=== PATIENT | female | born 1980 | race Caucasian/White ===

== ENCOUNTER 2016-09-12 07:59 | Day surgery (SDC) | payer OTHER ==
[2016-09-12 08:56] VITALS: BMI 45.1
[2016-09-12] MEDS ORDERED: LIDOCAINE HCL/PF 1% SDV 5ML VIAL ONE (09:04)
[2016-09-12] MEDS ORDERED: PROPOFOL 20 ML ONE (09:04)
[2016-09-12 09:52] VITALS: TEMP 98.4
[2016-09-12 10:41] VITALS: BP 110/73; PULSE 74
--- NOTE | 2016-09-13 11:51 | PATH ---
Surgical Pathology Report Patient Name: MICHELLE LARA [facility]. Rec. #: [id number] /Age/Gender: 1980 (Age: 36) / F Account: [id number] Location: U-ENDOSCOPY Taken: 09/12/2016 Received: 09/12/2016 Reported: 09/13/2016 Physicians: Bahman Murphy M.D. Specimen(s) Received A: BX DUODENUM B: BX STOMACH C: BX DISTAL ESOPHAGUS Clinical History Preprocedure for gastric operation Reflux, small hiatal hernia, gastritis Final Diagnosis A. DUODENUM, BIOPSY: DUODENAL MUCOSA WITH NO PATHOLOGIC CHANGES. NO HISTOLOGIC EVIDENCE OF GLUTEN SENSITIVE ENTEROPATHY (CELIAC SPRUE) IDENTIFIED. B. STOMACH, BIOPSY: GASTRIC FUNDIC MUCOSA WITH MILD CHRONIC GASTRITIS. IMMUNOSTAIN FOR H. PYLORI IS NEGATIVE. C. DISTAL ESOPHAGUS, BIOPSY: SQUAMOUS EPITHELIUM WITH PAPILLOMATOSIS SUGGESTIVE OF REFLUX ESOPHAGITIS. NO INTESTINAL METAPLASIA IDENTIFIED (NO PRETTY'S IDENTIFIED). Electronically Signed Nazario Aranda M.D. Gross Description A. Received in formalin, labeled "biopsy duodenum" are 2 morris, irregular portions of soft tissue measuring 0.2 and 0.4 cm. in greatest dimension. The specimens are submitted in toto in one cassette. B. Received in formalin, labeled "biopsy stomach" are 3 morris, irregular portions of soft tissue averaging 0.4 cm. in greatest dimension. The specimens are submitted in toto in one cassette. C. Received in formalin, labeled "biopsy distal esophagus" is a morris, irregular portion of soft tissue measuring 0.3 cm. in greatest dimension. The specimen is submitted in toto in one cassette. 09/12/201609/12/2016
== END 2016-09-12 10:41 | disposition home or self-care (01) ==
LOC: JASU-ENDO 07:59
PROVIDERS: ATTEND Internal Medicine Gastroenterology
PROC: 0DB68ZX Excision of Stomach, Via Natural or Artificial Opening Endoscopic, Diagnostic (ICD-10-PCS; 2016-09-12)
PROC: 0DB58ZX Excision of Esophagus, Via Natural or Artificial Opening Endoscopic, Diagnostic (ICD-10-PCS; 2016-09-12)
PROC: 0DB98ZX Excision of Duodenum, Via Natural or Artificial Opening Endoscopic, Diagnostic (ICD-10-PCS; principal; 2016-09-12 09:00)
DX: Z01.818 Encounter for other preprocedural examination (principal); E66.01 Morbid (severe) obesity due to excess calories; K29.60 Other gastritis without bleeding; K44.9 Diaphragmatic hernia without obstruction or gangrene
CPT/HCPCS: 84703; 88305-TC; 88342-TC

== ENCOUNTER 2016-10-03 11:53 | Emergency (ER) | payer OTHER ==
[2016-10-03 12:11] VITALS: BP 116/87; PULSE 82; TEMP 98; BMI 45.1
[2016-10-03] MEDS ORDERED: IBUPROFEN 600 MG TABLET (FP) PO ONE ×2 (12:43→13:04)
--- NOTE | 2016-10-03 12:44 | PDOC ---
History of Present Illness - General Chief Complaint: Sore Throat Stated Complaint: SORE THROAT Time Seen by Provider: 10/03/16 12:02 - History of Present Illness Initial Comments: 10/03/16 12:51 Chief complaint: Sore throat History of present illness: Patient with a sore throat for 3 days, temporary relief with Motrin, but persistent. Partner with similar upper respiratory illness. Review of systems: Denies cough, chest pain, shortness of breath, abdominal pain , nausea, vomiting, diarrhea, dysuria or frequency, vaginal bleeding or discharge, fever or chills Past medical history: Healthy female, no active medical problems, no asthma or other lung disease, no present medication other than ibuprofen and Tylenol for the current illness Social/family history reviewed and noncontributory. Specifically, nonsmoker Physical exam: Alert and oriented, significantly obese female but in no acute distress, cheerful and cooperative Afebrile, vital signs normal HEENT clear except for mild pharyngeal injection without exudate, swelling, or mass Neck supple without bruit mass or nodes Chest clear CV regular without murmur or gallop Abdomen benign Neurological intact Skin clear, no rash, adequate turgor and what mucous membranes Impression: Viral pharyngitis, rule out strep Plan: Culture and further medical management depending on results. Past History - Past Medical History Allergies/Adverse Reactions: Allergies Allergy/AdvReac Type Severity Reaction Status Date / Time clarithromycin [From Biaxin] Allergy Difficulty Verified 10/03/16 12:07 Breathing TUMERIC Allergy Uncoded 10/03/16 12:07 Home Medications: Ambulatory Orders Cholecalciferol (Vitamin D3) [Vitamin D -] 400 unit PO DAILY 09/12/16 Magnesium Carbonate/Al Hydrox [Gaviscon Es Tablet Chew] 2 each PO TID #0 tab.chew 09/12/16 Multivit with Iron-Minerals [Compete] 1 each PO DAILY 09/12/16 Anemia: No Asthma: No Cancer: No Cardiac Disorders: No (Murmur) CVA: No COPD: No CHF: No Dementia: No Diabetes: Yes (PRE-DIABETIC) GI Disorders: No Disorders: No HTN: No Hypercholesterolemia: No Liver Disease: No Seizures: No Thyroid Disease: No - Surgical History Abdominal Surgery: No Appendectomy: No Cardiac Surgery: No Cholecystectomy: No Lung Surgery: No Neurologic Surgery: No Orthopedic Surgery: No - Psycho/Social/Smoking Cessation Hx Anxiety: No Suicidal Ideation: No Smoking History: Never smoked Have you smoked in the past 12 months: No If you are a former smoker, when did you quit?: aug 2014 'Breaking Loose' booklet given: 12/22/14 Hx Alcohol Use: No Drug/Substance Use Hx: No Substance Use Type: None Hx Substance Use Treatment: No *Physical Exam - Vital Signs Last Vital Signs Temp Pulse Resp BP Pulse Ox 98.0 F 82 15 116/87 98 10/03/16 11:54 10/03/16 11:54 10/03/16 11:54 10/03/16 11:54 10/03/16 11:54 *DC/Admit/Observation/Transfer Diagnosis at time of Disposition: Acute viral pharyngitis - Discharge Dispostion Disposition: HOME Condition at time of disposition: Stable Admit: No - Referrals Referrals: Ashley Moses MD [Primary Care Provider] - 3 days - Patient Instructions Printed Discharge Instructions: DI for Viral Pharyngitis - Post Discharge Activity Work/School Note: Back to Work
== END 2016-10-03 13:17 | disposition home or self-care (01) ==
LOC: FER 11:53
DX: J02.9 Acute pharyngitis, unspecified (principal); B97.89 Other viral agents as the cause of diseases classified elsewhere; E66.9 Obesity, unspecified; Z68.42 Body mass index [BMI] 45.0-49.9, adult; Z87.891 Personal history of nicotine dependence
CPT/HCPCS: 87070; 87430; 99281-25

== ENCOUNTER 2016-10-10 10:59 | Emergency (ER) | payer OTHER ==
[2016-10-10 11:06] VITALS: BP 128/67; PULSE 79; TEMP 98.4; BMI 45.1
--- NOTE | 2016-10-10 11:30 | PDOC ---
History of Present Illness - General Chief Complaint: Respiratory Stated Complaint: DIFF BREATHING, COUGH Time Seen by Provider: 10/10/16 11:17 - History of Present Illness Initial Comments: 10/10/16 13:53 Chief complaint: Shortness of breath History of present illness: Patient is complains of the sensation of not being able to take a deep breath. This occurs mostly at night while trying to sleep. She recently got a new dog and is concerned that this may be an ALLERGY, though there has been no wheezing or nasal congestion. She has a history of severe anxiety, hyperventilation, and PTSD, and states that there has been considerable stress due to her new puppy. Review of systems: As above. Otherwise all systems reviewed and found to be negative. Past medical history: Reviewed and noncontributory otherwise Social/family history reviewed and noncontributory Physical exam: Morbidly obese but otherwise healthy appearing and in no acute distress. No respiratory distress, including tachypnea or dyspnea. Patient is breathing normally Afebrile, vital signs normal HEENT clear Neck supple without bruit mass or nodes Chest clear with full breath sounds throughout bilaterally. No wheezes rales or rhonchi. No splinting with deep inspiration. No tachypnea or dyspnea CV S1 and S2 normal without murmur or gallop pulses full and symmetric no JVD or edema rate 90 and regular Abdomen benign Neurological intact Extremities no CCE Skin clear, no rash, adequate turgor and what mucous membranes Impression: The patient's sensation of inability to take a full deep inspiration , along with normal oxygen saturation and no obvious dyspnea, suggests that this is either anxiety/hyperventilation or possibly an ALLERGIC reaction to her new dog, Though this sounds unlikely. No sign of infectious etiology, URI, bronchitis, or pneumonia Plan: Discuss relaxation techniques, albuterol inhaler as a trial at night when the dog is around, cleaning of the room with eliminating carpets and other sources of dust. Follow-up primary physician. Patient in no distress, no respiratory symptoms upon discharge to follow-up as directed Past History - Past Medical History Allergies/Adverse Reactions: Allergies Allergy/AdvReac Type Severity Reaction Status Date / Time clarithromycin [From Biaxin] Allergy Difficulty Verified 10/10/16 11:01 Breathing turmeric Allergy Verified 10/10/16 11:01 Home Medications: Ambulatory Orders Albuterol Sulfate Inhaler - [Ventolin HFA Inhaler -] 1 - 2 inh PO Q4H PRN #1 inhaler 10/10/16 Anemia: No Asthma: No Cancer: No Cardiac Disorders: (Murmur) CVA: No COPD: No CHF: No Dementia: No Diabetes: Yes (PRE-DIABETIC) GI Disorders: No Disorders: No HTN: No Hypercholesterolemia: No Liver Disease: No Seizures: No Thyroid Disease: No - Surgical History Abdominal Surgery: No Appendectomy: No Cardiac Surgery: No Cholecystectomy: No Lung Surgery: No Neurologic Surgery: No Orthopedic Surgery: No - Psycho/Social/Smoking Cessation Hx Anxiety: No Suicidal Ideation: No Smoking History: Former smoker Have you smoked in the past 12 months: No If you are a former smoker, when did you quit?: aug 2014 Information on smoking cessation initiated: No 'Breaking Loose' booklet given: 10/10/16 Hx Alcohol Use: No Drug/Substance Use Hx: No Substance Use Type: None Hx Substance Use Treatment: No *Physical Exam - Vital Signs Last Vital Signs Temp Pulse Resp BP Pulse Ox 98.4 F 79 18 128/67 98 10/10/16 11:00 10/10/16 11:00 10/10/16 11:00 10/10/16 11:00 10/10/16 11:00 *DC/Admit/Observation/Transfer Diagnosis at time of Disposition: Allergic reaction Qualifiers: Encounter type: initial encounter Qualified Code(s): T78.40XA - Allergy, unspecified, initial encounter - Discharge Dispostion Disposition: HOME Condition at time of disposition: Stable Admit: No - Prescriptions Prescriptions: Albuterol Sulfate Inhaler - [Ventolin HFA Inhaler -] 1 - 2 inh PO Q4H PRN #1 inhaler PRN Reason: shortness of breath or wheezin - Referrals Referrals: Ashley Moses MD [Primary Care Provider] - 2 Days - Patient Instructions Printed Discharge Instructions: DI for Anxiety -- Adult, Allergies, Respiratory (Alternative Therapy)
== END 2016-10-10 11:45 | disposition home or self-care (01) ==
LOC: FER 10:59
DX: T78.40XA Allergy, unspecified, initial encounter (principal); X58.XXXA Exposure to other specified factors, initial encounter; Y93.9 Activity, unspecified; R01.1 Cardiac murmur, unspecified; Z87.891 Personal history of nicotine dependence; E66.01 Morbid (severe) obesity due to excess calories; Z68.42 Body mass index [BMI] 45.0-49.9, adult
CPT/HCPCS: 99282-25

== ENCOUNTER 2017-01-07 08:52 | Emergency (ER) | payer OTHER ==
--- NOTE | 2017-01-07 09:01 | PDOC ---
Attending Attestation - Resident Resident Name: Keon Goldstein - ED Attending Attestation I have performed the following: I have examined & evaluated the patient, The case was reviewed & discussed with the resident, I agree w/resident's findings & plan, Exceptions are as noted - HPI HPI: 01/07/17 08:58 The patient is a 36-year-old female, with no significant past medical history, allergic to Biaxin and Turmeric, and no prior history of anaphylaxis, who presents to the emergency department with "an itchy rash of hives." She started taking Wellbutrin for weight loss approximately 4 days ago, and developed the rash gradually approximately 24 hours after taking the first dose. Lesions are red and itchy and change locations. She denies lip, tongue swelling. She denies a feeling of "throat tightness." She denies dyspnea, wheeze, cough. She denies nausea, vomiting, abdominal pain. She took Benadryl with only minimal response. She denies fever, headache, photophobia, neck stiffness. She denies any other novel products, medications, foods. 01/07/17 09:09 01/07/17 09:10 - Physicial Exam PE: 01/07/17 08:59 She is well-appearing and in no acute distress Vitals noted She has scattered hives, without involvement of her mucous membranes - Medical Decision Making 01/07/17 09:00 There is no evidence of anaphylaxis Will provide a single dose of Decadron and Ranitidine here Will treat with outpatient H1 blockade, H2 blockade Clinical impression: Mild ALLERGIC reaction to Wellbutrin I discussed the physical exam findings, ancillary test results and final diagnoses with the patient. I answered all of the patient's questions. The patient was satisfied with the care received and felt comfortable with the discharge plan and treatment plan. The patient will call their primary care physician within 24 hours to arrange follow-up and will return to the Emergency Department with any new, persistent or worsening symptoms. 01/07/17 09:18
[2017-01-07] MEDS ORDERED: DEXAMETHASONE 4 MG TABLET (FP) PO ONE (09:10)
[2017-01-07 09:12] VITALS: BP 138/58; PULSE 107; TEMP 98.4; BMI 45.1
[2017-01-07] MEDS ORDERED: DEXAMETHASONE 4 MG TABLET (FP) ONE (09:16)
[2017-01-07] MEDS ORDERED: RANITIDINE HCL 150 MG TABLET (FP) PO ONE (09:17)
[2017-01-07] MEDS ORDERED: RANITIDINE HCL 150 MG TABLET (FP) ONE (09:18)
--- NOTE | 2017-01-07 09:30 | PDOC ---
History of Present Illness - General Chief Complaint: Allergic Reaction Stated Complaint: ALLERGIC REACTION RASH AND ITCH Time Seen by Provider: 01/07/17 09:09 History Source: Patient Exam Limitations: No Limitations - History of Present Illness Initial Comments: 01/07/17 09:23 36 y/o F with PMH of anxiety presents to ER w/ c/o itchiness and rash after starting a new medication. Pt was started on wellbutrin approximately 5 days ago for appetite suppression and anxiety. Soon after starting medication patient began having itchiness which started in groin area and eventually progressed into full body itchiness over the last 5 days. She also developed a rash on her arms, chest, lower back, abdomen, and legs and warmth in body. She took 2 OTC benadryl pills last night which helped her sleep but did not help with the itchiness or rash. She denies any change in diet, denies using any new clothes, change in jewelry, new fragrances, new body products including washes , shampoos, soaps, lotions, creams, or change in any supplements. She denies any CP, SOB, wheezing, tongue swelling, abd pain, nausea, vomiting, diarrhea, chills, visual changes. Denies any sick contacts. Past History - Past Medical History Allergies/Adverse Reactions: Allergies Allergy/AdvReac Type Severity Reaction Status Date / Time bupropion HCl Allergy Hives Verified 01/07/17 09:21 [From Wellbutrin] clarithromycin [From Biaxin] Allergy Difficulty Verified 01/07/17 08:54 Breathing turmeric Allergy Verified 01/07/17 08:54 Home Medications: Ambulatory Orders Biotin 10,000 mcg PO DAILY 01/07/17 Bupropion HCl [Wellbutrin Xl -] 150 mg PO DAILY 01/07/17 Cholecalciferol (Vitamin D3) [Vitamin D3 -] 400 unit PO DAILY 01/07/17 Famotidine [Pepcid] 20 mg PO BID #14 tablet 01/07/17 Loratadine [Claritin] 10 mg PO DAILY #7 tablet 01/07/17 Multivitamins [Tab-A-Vit -] 1 tab PO DAILY 01/07/17 Vit B Comp/C/FA/Iron/Vit E [Vitamin B Complex Tablet] 1 each PO DAILY 01/07/17 Anemia: No Asthma: No Cancer: No Cardiac Disorders: (Murmur) CVA: No COPD: No CHF: No Dementia: No Diabetes: Yes (PRE-DIABETIC) GI Disorders: No Disorders: No HTN: No Hypercholesterolemia: No Liver Disease: No Seizures: No Thyroid Disease: No Other medical history: ANXIETY DEPRESSION - Surgical History Abdominal Surgery: No Appendectomy: No Cardiac Surgery: No Cholecystectomy: No Lung Surgery: No Neurologic Surgery: No Orthopedic Surgery: No - Psycho/Social/Smoking Cessation Hx Anxiety: Yes (DENIES ANY DISTRESS AT PRESENT) Suicidal Ideation: No Smoking History: Former smoker Have you smoked in the past 12 months: No If you are a former smoker, when did you quit?: aug 2014 Information on smoking cessation initiated: Yes 'Breaking Loose' booklet given: 10/10/16 Hx Alcohol Use: No Drug/Substance Use Hx: No Substance Use Type: None Hx Substance Use Treatment: No Review of Systems - Review of Systems Able to Perform ROS?: Yes Comments:: 01/07/17 09:31 CONSTITUTIONAL: Absent: chills, diaphoresis, generalized weakness, malaise HEENT: Absent: rhinorrhea, nasal congestion, throat pain, throat swelling, difficulty swallowing, mouth swelling, eye pain, visual Changes CARDIOVASCULAR: Absent: chest pain, syncope, palpitations, irregular heart rate , lightheadedness RESPIRATORY: Absent: cough, shortness of breath, dyspnea with exertion, orthopnea, wheezing, stridor, hemoptysis GASTROINTESTINAL:Absent: abdominal pain, abdominal distension, nausea, vomiting , diarrhea, constipation, melena, hematochezia MUSCULOSKELETAL: Absent: myalgia, arthralgia, joint swelling SKIN: +rash +itching Absent: pallor ENDOCRINE:Absent: unexplained weight gain, unexplained weight loss, heat intolerance, cold intolerance NEUROLOGIC: Absent: headache, focal weakness or paresthesias, dizziness, unsteady gait, seizure, mental status changes, bladder or bowel incontinence PSYCHIATRIC: Absent: anxiety, depression, suicidal or homicidal ideation, hallucinations *Physical Exam - Vital Signs Last Vital Signs Temp Pulse Resp BP Pulse Ox 98.4 F 107 H 16 138/58 97 01/07/17 08:54 01/07/17 08:54 01/07/17 08:54 01/07/17 08:54 01/07/17 08:54 - Physical Exam Comments: 01/07/17 09:33 GENERAL: Well developed, well nourished. Awake and alert. Mild disterss from pruritus. HEENT: Normocephalic, atraumatic. PERRLA, EOMI. No conjunctival pallor. Sclera are non-icteric. Moist mucous membranes. Oropharynx is clear. NECK: Supple. Full ROM. CARDIOVASCULAR: Tachycardic. 1/6 holosystolic murmur, no rubs, or gallops. PULMONARY: No evidence of respiratory distress. Lungs clear to auscultation bilaterally. No wheezing, rales or rhonchi. ABDOMINAL: +Papular rash on abdomen and chest wall. Soft. Obese. Non-tender. Non -distended. No rebound or guarding. No organomegaly. Normoactive bowel sounds. MUSCULOSKELETAL: Normal range of motion at all joints. No bony deformities or tenderness. EXTREMITIES: +Papular rash. No cyanosis. No edema. No calf tenderness. SKIN: +Papular rash on arms, chest wall, folds of skins in abdomen, back, B/L LE. Redness at B/L forearms. Warm and dry. Normal capillary refill. No jaundice. NEUROLOGICAL: Alert, awake, appropriate. Cranial nerves 2-12 grossly intact. Normal speech. PSYCHIATRIC: Cooperative. Good eye contact. Appropriate mood and affect. ED Treatment Course - Medications Given in the ED: ED Medications Discontinued Medications Generic Name Dose Route Start Last Admin Trade Name Freq PRN Reason Stop Dose Admin Dexamethasone 8 mg 01/07/17 09:10 01/07/17 09:17 Decadron - PO 01/07/17 09:11 8 mg ONCE ONE Administration Ranitidine HCl 150 mg 01/07/17 09:17 01/07/17 09:20 Zantac - PO 01/07/17 09:18 150 mg ONCE ONE Administration Medical Decision Making - Medical Decision Making 01/07/17 09:39 36 y/o F with PMH of anxiety presents to ER w/ c/o itchiness and rash after starting a new medication. Pt was started on wellbutrin approximately 5 days ago for appetite suppression and anxiety. Soon after starting medication patient began having itchiness which started in groin area and eventually progressed into full body itchiness over the last 5 days. Pt has papular rash on arms, chest wall, folds of abdomen, lower back, b/l LE. Pt appears to be in mild distress from pruritus. Pt denies any SOB, no wheezing on PE, no swelling in oropharynx. Pt has Pt to receive decadron 8 mg PO once, zantac 150 mg PO once. 01/07/17 09:48 Pt instructed to f/u with PCP (Dr. Ashley Moses), Dr. Riley Stark on changing wellbutrin, and instructed to stop taking wellbutrin. Pt also instructed to take claritin daily for 7 days and zantac 20 mg po bid for 7 days; both of which have been sent to her pharmacy. *DC/Admit/Observation/Transfer Diagnosis at time of Disposition: Allergic reaction Qualifiers: Encounter type: initial encounter Qualified Code(s): T78.40XA - Allergy, unspecified, initial encounter - Discharge Dispostion Disposition: HOME Condition at time of disposition: Improved - Prescriptions Prescriptions: Loratadine [Claritin] 10 mg PO DAILY #7 tablet Famotidine [Pepcid] 20 mg PO BID #14 tablet - Referrals Referrals: Ashley Moses MD [Staff Physician] - - Patient Instructions Printed Discharge Instructions: DI for Adverse Drug Reaction -- Allergic Additional Instructions: Follow up with your primary care doctor. Follow up with Dr. Stark. You will stop taking the wellbutrin. There have been two medications prescribed to your pharmacy for you: Claritin and Pepcid. Take these as instructed. If your symptoms worsen please return to the emergency room.
== END 2017-01-07 09:53 | disposition home or self-care (01) ==
LOC: FER 08:52
DX: T78.40XA Allergy, unspecified, initial encounter (principal); X58.XXXA Exposure to other specified factors, initial encounter; R73.03 Prediabetes; F41.9 Anxiety disorder, unspecified; Z87.891 Personal history of nicotine dependence
CPT/HCPCS: 99282-25

== ENCOUNTER 2017-02-24 13:32 | Emergency (ER) | payer OTHER ==
[2017-02-24] MEDS ORDERED: ALBUTEROL SO4 2.5/IPRATROPIUM 0.5 INH SOL 3 ML VIAL.NEB. NEB ONE ×2 (14:08→14:29)
[2017-02-24] MEDS ORDERED: SODIUM CHLORIDE 1,000 ML IV STA (14:08)
--- NOTE | 2017-02-24 14:08 | PDOC ---
History of Present Illness - General Chief Complaint: Shortness of Breath Stated Complaint: SHORTNESS OF BREATH,PALPITATION Time Seen by Provider: 02/24/17 13:48 History Source: Patient Exam Limitations: No Limitations - History of Present Illness Initial Comments: 37 yo F presents with SOB, hoarse voice, dry cough, difficulty sleeping for the past few days. She states that she just lost her voice today. She has been having difficulty sleeping, as she is very uncomfortable lying flat- feels short of breath, as if her chest is tight. She states that she feels as if she can not breathe deeply enough. She has been under extreme stress recently, making it more difficult to sleep. Denies immobilization, long trips. No GARZA, it is positional only. No N/V, diaphoresis, chest pain. Past History - Past Medical History Allergies/Adverse Reactions: Allergies Allergy/AdvReac Type Severity Reaction Status Date / Time bupropion HCl Allergy Hives Verified 01/07/17 09:21 [From Wellbutrin] clarithromycin [From Biaxin] Allergy Difficulty Verified 01/07/17 08:54 Breathing turmeric Allergy Verified 01/07/17 08:54 Home Medications: Ambulatory Orders Biotin 10,000 mcg PO DAILY 01/07/17 Bupropion HCl [Wellbutrin Xl -] 150 mg PO DAILY 01/07/17 Cholecalciferol (Vitamin D3) [Vitamin D3 -] 400 unit PO DAILY 01/07/17 Famotidine [Pepcid] 20 mg PO BID #14 tablet 01/07/17 Loratadine [Claritin] 10 mg PO DAILY #7 tablet 01/07/17 Multivitamins [Tab-A-Vit -] 1 tab PO DAILY 01/07/17 Vit B Comp/C/FA/Iron/Vit E [Vitamin B Complex Tablet] 1 each PO DAILY 01/07/17 Anemia: No Asthma: No Cancer: No Cardiac Disorders: (Murmur) CVA: No COPD: No CHF: No Dementia: No Diabetes: Yes (PRE-DIABETIC) GI Disorders: No Disorders: No HTN: No Hypercholesterolemia: No Liver Disease: No Seizures: No Thyroid Disease: No - Surgical History Abdominal Surgery: No Appendectomy: No Cardiac Surgery: No Cholecystectomy: No Lung Surgery: No Neurologic Surgery: No Orthopedic Surgery: No - Psycho/Social/Smoking Cessation Hx Anxiety: Yes (DENIES ANY DISTRESS AT PRESENT) Suicidal Ideation: No Smoking History: Former smoker Have you smoked in the past 12 months: No If you are a former smoker, when did you quit?: aug 2014 'Breaking Loose' booklet given: 10/10/16 Hx Alcohol Use: No Drug/Substance Use Hx: No Substance Use Type: None Hx Substance Use Treatment: No Review of Systems - Review of Systems Able to Perform ROS?: Yes Comments:: GENERAL/CONSTITUTIONAL: No fever or chills. No weakness. HEAD, EYES, EARS, NOSE AND THROAT: No change in vision. No ear pain or discharge. No sore throat. CARDIOVASCULAR: No chest pain. +Shortness of breath. RESPIRATORY: No cough, wheezing, or hemoptysis. GASTROINTESTINAL: No nausea, vomiting, diarrhea or constipation. GENITOURINARY: No dysuria, frequency, or change in urination. MUSCULOSKELETAL: No joint or muscle swelling or pain. No neck or back pain. SKIN: No rash NEUROLOGIC: No headache, vertigo, loss of consciousness, or change in strength/ sensation. ENDOCRINE: No increased thirst. No abnormal weight change. HEMATOLOGIC/LYMPHATIC: No anemia, easy bleeding, or history of blood clots. ALLERGIC/IMMUNOLOGIC: No hives or skin allergy. *Physical Exam - Physical Exam Comments: GENERAL: Awake, alert, and fully oriented, in no acute distress HEAD: No signs of trauma EYES: PERRLA, EOMI, sclera anicteric, conjunctiva clear ENT: Auricles normal inspection, hearing grossly normal, nares patent, oropharynx erythematous without exudates. Moist mucosa NECK: Normal ROM, supple, no lymphadenopathy, JVD, or masses LUNGS: Breath sounds equal, clear to auscultation bilaterally. No wheezes, and no crackles HEART: Regular rate and rhythm, normal S1 and S2, no murmurs, rubs or gallops ABDOMEN: Soft, nontender, normoactive bowel sounds. No guarding, no rebound. No masses EXTREMITIES: Normal range of motion, no edema. No clubbing or cyanosis. No cords , erythema, or tenderness NEUROLOGICAL: Cranial nerves II through XII grossly intact. Normal speech, normal gait SKIN: Warm, Dry, normal turgor, no rashes or lesions noted. ED Treatment Course - LABORATORY CBC & Chemistry Diagram: 02/24/17 14:24 02/24/17 14:24 Medical Decision Making - Medical Decision Making 02/24/17 17:28 Pt states significant relief of symptoms with duoneb treatment. She has inhaler at home, recently prescribed. No prior history of asthma, and she states she was not aware of what was happening with her symptoms. I counseled her to use the inhaler in the future when she has similar symptoms. This is likely bronchospasm related to a viral syndrome. Stable for DC home. *DC/Admit/Observation/Transfer Diagnosis at time of Disposition: Viral syndrome, Shortness of breath - Discharge Dispostion Disposition: HOME Condition at time of disposition: Improved Admit: No
[2017-02-24 14:27] VITALS: TEMP 98.3; BMI 45.1
[2017-02-24 15:39] LABS: BASOPHIL 1.2 % (0-2.0); MCH 28.3 pg (25.7-33.7); MEAN CELL VOLUME 85.6 fl (80-96); MEAN PLT VOLUME 8.3 fl (7.5-11.1); NEUTROPHILS 61.5 % (42.8-82.8); PLATELET COUNT 319 K/MM3 (134-434); RDW 13.4 % (11.6-15.6); WHITE BLOOD COUNT 9.1 K/mm3 (4.0-10.8)
[2017-02-24 16:06] LABS: ALK PHOS 80 U/L (32-92); ANION GAP 7 (8-16); CALCIUM 9.2 mg/dl (8.4-10.2); CO2 24 mmol/L (22-28); CREATININE 0.9 mg/dl (0.6-1.3); GLUCOSE,RANDOM 111 mg/dl (74-106); SGOT/AST 19 U/L (10-42); SGPT/ALT 21 U/L (10-40); TOT PROT 7.3 g/dl (6.4-8.3)
[2017-02-24 16:56] VITALS: BP 123/81; PULSE 73
[2017-02-24 17:25] LABS: BILIRUBIN,TOTAL < 0.3 mg/dl (0.2-1.0)
--- NOTE | 2017-02-25 10:47 | EKG ---
Test Reason : Blood Pressure : / mmHG Vent. Rate : 073 BPM Atrial Rate : 073 BPM P-R Int : 132 ms QRS Dur : 092 ms QT Int : 382 ms P-R-T Axes : 001 026 021 degrees QTc Int : 420 ms NORMAL SINUS RHYTHM NO PREVIOUS ECGS AVAILABLE Confirmed by MD ERWIN, IVETH ([id number]) on 02/25/2017 10:47:21 AM Referred By: SIA Confirmed By:IVETH HOOD MD
== END 2017-02-24 17:49 | disposition home or self-care (01) ==
LOC: FER 13:32
PROC: 3E0F7GC Introduction of Other Therapeutic Substance into Respiratory Tract, Via Natural or Artificial Opening (ICD-10-PCS; principal; 2017-02-24)
PROC: 3E0337Z Introduction of Electrolytic and Water Balance Substance into Peripheral Vein, Percutaneous Approach (ICD-10-PCS; 2017-02-24)
DX: B34.9 Viral infection, unspecified (principal); R06.02 Shortness of breath; F41.9 Anxiety disorder, unspecified; Z87.891 Personal history of nicotine dependence
CPT/HCPCS: 36415; 71020-TC; 80053; 84703; 85025; 93005; 94640; 96360; 99283-25

== ENCOUNTER 2017-03-26 10:30 | Emergency (ER) | payer OTHER ==
[2017-03-26 10:42] VITALS: BP 130/84; PULSE 80; TEMP 97.3; BMI 43.5
[2017-03-26] MEDS ORDERED: IBUPROFEN 600 MG TABLET (FP) PO ONE ×2 (10:43→11:00)
--- NOTE | 2017-03-26 10:57 | PDOC ---
History of Present Illness - General Chief Complaint: Pain Stated Complaint: PAIN TO LEFT ARM S/P FALL Time Seen by Provider: 03/26/17 10:32 History Source: Patient Exam Limitations: No Limitations - History of Present Illness Initial Comments: 03/26/17 10:51 37-year-old female with history of anxiety and arthritis presents with right shoulder pain since fall yesterday. The patient was playing in a bouncy house, fell backward in the bouncy house (did not hit ground) and strained her mid back , but subsequently also developed pain to the R shoulder. The pain is constant and dull, worse with range of motion of the right shoulder, and not associated with any distal motor or sensory deficit. She took Motrin with relief of her back pain but without relief of her shoulder pain, so she presents for evaluation today due to persistent pain. No headache or neck pain, but the pain does radiate across the trapezius muscle. No chest pain or difficulty breathing , no other injuries. Past History - Past Medical History Allergies/Adverse Reactions: Allergies Allergy/AdvReac Type Severity Reaction Status Date / Time bupropion HCl Allergy Hives Verified 03/26/17 10:32 [From Wellbutrin] clarithromycin [From Biaxin] Allergy Difficulty Verified 03/26/17 10:32 Breathing turmeric Allergy Verified 03/26/17 10:32 Home Medications: Ambulatory Orders Naproxen [Naprosyn -] 500 mg PO BID PRN #20 tablet 03/26/17 Tramadol HCl [Ultram -] 50 mg PO BID PRN #7 tablet MDD 2 03/26/17 Anemia: No Asthma: No Cancer: No Cardiac Disorders: (Murmur) CVA: No COPD: No CHF: No Dementia: No Diabetes: Yes (PRE-DIABETIC) GI Disorders: No Disorders: No HTN: No Hypercholesterolemia: No Liver Disease: No Seizures: No Thyroid Disease: No - Surgical History Abdominal Surgery: No Appendectomy: No Cardiac Surgery: No Cholecystectomy: No Lung Surgery: No Neurologic Surgery: No Orthopedic Surgery: No - Psycho/Social/Smoking Cessation Hx Anxiety: Yes (DENIES ANY DISTRESS AT PRESENT) Suicidal Ideation: No Smoking History: Never smoked Have you smoked in the past 12 months: No If you are a former smoker, when did you quit?: aug 2014 Information on smoking cessation initiated: No 'Breaking Loose' booklet given: 10/10/16 Hx Alcohol Use: No Drug/Substance Use Hx: No Substance Use Type: None Hx Substance Use Treatment: No Review of Systems - Review of Systems Constitutional: No: Chills, Fever Respiratory: No: Shortness of Breath Cardiac (ROS): No: Chest Pain, Palpitations ABD/GI: No: Nausea, Vomiting Musculoskeletal: Yes: Muscle Pain Neurological: No: Tingling, Weakness *Physical Exam - Vital Signs Last Vital Signs Temp Pulse Resp BP Pulse Ox 97.3 F L 80 18 130/84 99 03/26/17 10:34 03/26/17 10:34 03/26/17 10:34 03/26/17 10:34 03/26/17 10:34 - Physical Exam Comments: 03/26/17 10:53 GENERAL: The patient is awake, alert, and fully oriented, in mild distress secondary to right shoulder discomfort. HEAD: Normal with no signs of trauma. EYES: Pupils equal, round and reactive to light, extraocular movements intact, sclera anicteric, conjunctiva clear. NECK: Full range of motion, supple, no midline spine tenderness. There is discomfort to palpation along the right trapezius muscle without swelling or discoloration or hematoma. EXTREMITIES: No swelling or ecchymosis or erythema. Tenderness to palpation along the proximal humerus, but no crepitus or deformity. Active range of motion is limited, but there is full passive range of motion. 5 out of 5 strength in the elbow and wrist and hand on the right side, sensory and vascular intact distally. The clavicle is without deformity or tenderness. NEUROLOGICAL: Normal speech, normal gait. There is no midline spine tenderness to palpation or deformity. Full strength and full range of motion of the lower extremities bilaterally. PSYCH: Normal mood, normal affect. SKIN: Warm, Dry, normal turgor, no rashes or lesions noted. ED Treatment Course - RADIOLOGY Radiology Studies Ordered: Category Date Time Status SHOULDER-RIGHT [RAD] Stat Radiology 03/26/17 10:39 Ordered Medical Decision Making - Medical Decision Making 03/26/17 10:55 37-year-old female who fell in a bouncy [place] yesterday, likely with mid back and right shoulder/trapezius strain. Neurovascular intact, rule out fracture. The patient drove here with her son, so she cannot take opiates here Will give dose of ibuprofen Right shoulder x-ray Dispo accordingly, will need sling for comfort, stronger pain medicine, and orthopedics referral. 03/26/17 11:03 Xray confirms no acute bony pathology. Sling applied, ROM exercises, pain control, ortho referral as needed. *DC/Admit/Observation/Transfer Diagnosis at time of Disposition: Sprain of right shoulder Qualifiers: Encounter type: initial encounter Shoulder sprain type: unspecified sprain Qualified Code(s): S43.401A - Unspecified sprain of right shoulder joint, initial encounter - Discharge Dispostion Disposition: HOME Condition at time of disposition: Stable - Prescriptions Prescriptions: Naproxen [Naprosyn -] 500 mg PO BID PRN #20 tablet PRN Reason: Pain Tramadol HCl [Ultram -] 50 mg PO BID PRN #7 tablet MDD 2 PRN Reason: Pain - Referrals Referrals: Jessee Ribeiro MD [Staff Physician] - - Patient Instructions Printed Discharge Instructions: How to Use a Sling, DI for Shoulder Sprain Additional Instructions: Activity as tolerated. Sling as instructed with range of motion exercises every 1-2 hours. Avoid heavy lifting/strenuous activity and avoid immobilization. Stay hydrated. Naproxen twice daily for 5 days, preferably with food, and then as needed for pain. Tramadol as prescribed as needed for severe pain, this can make you lightheaded so take proper precautions. Ice the affected areas for 20 minutes every 3-4 hours to reduce swelling. Continue your medications as previously prescribed by your physician. You should follow up with Dr. Ribeiro as needed regarding today's emergency department visit. If symptoms persist beyond 7-10 days, an MRI may be useful to further identify the cause. Return to the emergency department for any new or concerning symptoms, particularly persistent or intolerable pain, weakness or numbness, severe swelling or discoloration. L
== END 2017-03-26 11:32 | disposition home or self-care (01) ==
LOC: FER 10:30
DX: S43.401A Unspecified sprain of right shoulder joint, initial encounter (principal); W18.39XA Other fall on same level, initial encounter; Y93.89 Activity, other specified; Y92.89 Other specified places as the place of occurrence of the external cause; R01.1 Cardiac murmur, unspecified; Z87.891 Personal history of nicotine dependence
CPT/HCPCS: 73030-TC-RT; 99283-25

== ENCOUNTER 2017-07-04 09:24 | Emergency (ER) | payer OTHER ==
[2017-07-04 09:33] VITALS: BP 121/70; PULSE 79; TEMP 97.6; BMI 38.7
--- NOTE | 2017-07-04 10:19 | PDOC ---
History of Present Illness - General History Source: Patient Exam Limitations: No Limitations - History of Present Illness Initial Comments: 07/04/17 10:40 37F with pmh of PCOS and Gastric sleeve placement in April, presents with right -sided submandibular lymph node pain since this morning. She received an IV and PO contrast abdominal and pelvic CT yesterday evening at 1830 and woke up with a visibly swollen and painful throat. Denies rashes, tachycardia, SOB, dyspnea. She has lsot 63LBS since the gastric placement in April. Denies traveling and sick contacts. 07/04/17 10:45 <Harshad Latif - Last Filed: 07/04/17 10:50> <Mamta Nunez - Last Filed: 07/06/17 15:26> - General Chief Complaint: Pain Stated Complaint: SWOLLEN LYMPH NODES Time Seen by Provider: 07/04/17 09:40 Past History - Past Medical History Anemia: No Asthma: No Cancer: No Cardiac Disorders: (Murmur) CVA: No COPD: No CHF: No Dementia: No Diabetes: Yes (PRE-DIABETIC) GI Disorders: No Disorders: No HTN: No Hypercholesterolemia: No Liver Disease: No Seizures: No Thyroid Disease: No - Surgical History Abdominal Surgery: Yes (SLEEVE GASTRECTOMY) Appendectomy: No Cardiac Surgery: No Cholecystectomy: No Gastric Stapling: Yes Lung Surgery: No Neurologic Surgery: No Orthopedic Surgery: No - Suicide/Smoking/Psychosocial Hx Smoking History: Former smoker Have you smoked in the past 12 months: No If you are a former smoker, when did you quit?: aug 2014 Information on smoking cessation initiated: No 'Breaking Loose' booklet given: 10/10/16 Hx Alcohol Use: No Drug/Substance Use Hx: No Substance Use Type: None Hx Substance Use Treatment: No <Harshad Latif - Last Filed: 07/04/17 10:50> <Mamta Nunez - Last Filed: 07/06/17 15:26> - Past Medical History Allergies/Adverse Reactions: Allergies Allergy/AdvReac Type Severity Reaction Status Date / Time bupropion HCl Allergy Hives Verified 07/04/17 09:26 [From Wellbutrin] clarithromycin [From Biaxin] Allergy Difficulty Verified 07/04/17 09:26 Breathing turmeric Allergy Verified 07/04/17 09:26 Home Medications: Ambulatory Orders Famotidine [Pepcid] 20 mg PO DAILY 07/03/17 Pantoprazole Sodium [Protonix] 40 mg PO DAILY 07/03/17 Review of Systems - Review of Systems Able to Perform ROS?: Yes Constitutional: No: Symptoms Reported HEENTM: Yes: See HPI Respiratory: No: Symptoms reported Cardiac (ROS): No: Symptoms Reported ABD/GI: No: Symptoms Reported : No: Symptoms Reported Musculoskeletal: No: Symptoms Reported Integumentary: No: Symptoms Reported Neurological: No: Symptoms reported Endocrine: Yes: Change in Weight. No: Excessive Sweating, Intolerance to Heat, Increased Thirst, Increased Urine, Unexplained Weight Gain Hematologic/Lymphatic: Yes: See HPI All Other Systems: Reviewed and Negative <Harshad Latif - Last Filed: 07/04/17 10:50> *Physical Exam - Vital Signs Last Vital Signs Temp Pulse Resp BP Pulse Ox 97.6 F 79 18 121/70 97 07/04/17 09:25 07/04/17 09:25 07/04/17 09:25 07/04/17 09:25 07/04/17 09:25 - Physical Exam General Appearance: Yes: Nourished, Appropriately Dressed. No: Apparent Distress HEENT: positive: EOMI, YIFAN. negative: Muffled/Hoarse voice, Pharyngeal Erythema, Tonsillar Exudate Neck: positive: Tender, Normal Thyroid, Supple, Lymphadenopathy (R). negative: Carotid bruit, Decreased range of motion, Thyromegaly Respiratory/Chest: positive: Lungs Clear, Normal Breath Sounds. negative: Chest Tender, Respiratory Distress Cardiovascular: positive: Regular Rhythm, Regular Rate, S1, S2 Gastrointestinal/Abdominal: positive: Normal Bowel Sounds, Soft. negative: Tender Lymphatic: positive: Tenderness, Other (no other lymph nodes affected.) Integumentary: positive: Normal Color, Dry, Warm. negative: Cyanotic, Moist, Hives, Petechiae, Rash, Swelling, Ecchymosis <Harshad Latif - Last Filed: 07/04/17 10:50> - Vital Signs Last Vital Signs Temp Pulse Resp BP Pulse Ox 97.6 F 79 18 121/70 97 07/04/17 09:25 07/04/17 09:25 07/04/17 09:25 07/04/17 09:25 07/04/17 09:25 <Mamta Nunez S - Last Filed: 07/06/17 15:26> Medical Decision Making - Medical Decision Making 07/04/17 10:47 37F s/p gastric sleeve placement presents with swollen submandibular lymph node on the right. No teeth or gum pain or tenderness, no visible infection or injury of mouth, skin or scalp. No visible rash on body. Submandibular lymphadenopathy, uncertain etiology, likely viral. Dicharginfg patient with recommendation to come back to ED if any new, worsening or concerning symptom. <Harshad Latif - Last Filed: 07/04/17 10:50> *DC/Admit/Observation/Transfer - Discharge Dispostion Admit: No <Harshad Latif - Last Filed: 07/04/17 10:50> <Mamta Nunez - Last Filed: 07/06/17 15:26> Diagnosis at time of Disposition: Lymphadenopathy of head and neck - Discharge Dispostion Disposition: HOME Condition at time of disposition: Stable - Referrals Referrals: Ashley Moses MD [Primary Care Provider] - - Patient Instructions Printed Discharge Instructions: DI for Lymphadenopathy Additional Instructions: Come back to ED for any new, worsening or concerning symptom
--- NOTE | 2017-07-04 16:37 | PDOC ---
Attending Attestation - Resident Resident Name: Harshad Latif - ED Attending Attestation I have performed the following: I have examined & evaluated the patient, The case was reviewed & discussed with the resident, I agree w/resident's findings & plan - HPI HPI: PATIENT WALKED IN COMPLAINING OF SWOLLEN GLANDS ON THE RIGHT SIDE OF THE NECK SHE THINGS IS A REACTION TO THE IV CONTRAST SHE HAD FOR A CT & IV CONTRAST A DAY BEFORE 07/04/17 16:37 07/06/17 15:39 - Physicial Exam PE: ALERT, ORIENTED X 3, AMBULATORY, MILDLY ANXIOUS HEAD :EMILE, PHARYNX MILDLY HYPEREMIC, NORMAL DENTURES, GUMS NORMAL NON TENDER NECK : SUPLE, RIGHT SIDED LYMPH NODE APROX 3CM DIAMETER LUNGS CLEAR SKIN WNL NO RASHES NEURO INTACT 07/04/17 16:41 07/06/17 15:39 - Medical Decision Making PATIENT SEEN APOTENTIAL REACTION TO THE IV CONTRAST GIVEN A DAY BEFORE. AFTER FULL EXAM IT SEEMS THAT THERE IS AN ISOLATED LYMPH NODE ON THE RIGHT SIDE OF THE NECK WITHOUT ANY SIGNS OF ALLERGIC REACTION. ADVISED TO FOLLOW UP WITH PMD FOR FURTHER EVALUATION AND TREATMENT 07/06/17 15:42
== END 2017-07-04 10:32 | disposition home or self-care (01) ==
LOC: FER 09:24
DX: R59.9 Enlarged lymph nodes, unspecified (principal); R01.1 Cardiac murmur, unspecified; R73.03 Prediabetes; Z87.891 Personal history of nicotine dependence
CPT/HCPCS: 99283-25

== ENCOUNTER 2017-08-01 09:15 | Emergency (ER) | payer OTHER ==
[2017-08-01 09:39] VITALS: BMI 37.9
[2017-08-01] MEDS ORDERED: SODIUM CHLORIDE 0.9% 1000 ML INFUS.BAG IV ONE (09:57)
[2017-08-01] MEDS ORDERED: ONDANSETRON 4 MG/2 ML VIAL IVPUSH ONE (09:57)
[2017-08-01] MEDS ORDERED: KETOROLAC TROMETHAMINE 15 MG/ML VIAL IVPUSH ONE (09:58)
[2017-08-01] MEDS ORDERED: ACETAMINOPHEN 1000 MG/100 ML VIAL (NON FORMULARY) IVPB ONE (09:58)
[2017-08-01] MEDS ORDERED: ALBUTEROL SO4 2.5/IPRATROPIUM 0.5 INH SOL 3 ML VIAL.NEB. NEB ONE ×2 (10:16→10:57)
[2017-08-01] MEDS ORDERED: KETOROLAC TROMETHAMINE 15 MG/ML VIAL ONE (10:16)
[2017-08-01] MEDS ORDERED: ACETAMINOPHEN INJECTION 100 ML IVPB ONE (10:16)
[2017-08-01] MEDS ORDERED: ONDANSETRON 4 MG/2 ML VIAL ONE (10:17)
[2017-08-01 10:23] LABS: BASOPHIL 1.4 % (0-2.0); EOSINOPHIL 0.5 % (0-4.5); MCH 29.1 pg (25.7-33.7); MCHC 33.6 g/dl (32.0-36.0); MEAN CELL VOLUME 86.5 fl (80-96); MEAN PLT VOLUME 8.8 fl (7.5-11.1); NEUTROPHILS 77.7 % (42.8-82.8); PLATELET COUNT 267 K/MM3 (134-434); RDW 13.4 % (11.6-15.6); WHITE BLOOD COUNT 4.6 K/mm3 (4.0-10.8)
[2017-08-01] MEDS: ALBUTEROL SO4 2.5/IPRATROPIUM 0.5 INH SOL 3 ML VIAL.NEB. NEB SCH ×4 (10:28→11:20)
[2017-08-01 10:41] LABS: ALBUMIN 4.5 g/dl (3.5-5.0); ALK PHOS 97 U/L (32-92); ANION GAP 8 (8-16); BILIRUBIN,TOTAL 0.4 mg/dl (0.2-1.0); CALCIUM 9.7 mg/dl (8.4-10.2); CO2 24 mmol/L (22-28); CREATININE 1.1 mg/dl (0.6-1.3); GLUCOSE,RANDOM 95 mg/dl (74-106); SGOT/AST 21 U/L (10-42); SGPT/ALT 21 U/L (10-40); TOT PROT 8.1 g/dl (6.4-8.3)
--- NOTE | 2017-08-01 10:48 | PDOC ---
History of Present Illness - General Chief Complaint: Respiratory Stated Complaint: FEVER,COUGH History Source: Patient Exam Limitations: No Limitations - History of Present Illness Initial Comments: 08/01/17 10:44 37-year-old female history gastric bypass surgery here today complaining of cough congestion and fever. Patient states she's not been feeling well since beginning of last month with a cough and congestion. About fever last night of 102 has nausea but no vomiting no abdominal pain or urinary symptoms cough is nonproductive. No sick contacts no recent travel. Does have a history of exercise-induced asthma for which she is albuterol periodically. Has not used it recently no rash no other complaints Past History - Past Medical History Allergies/Adverse Reactions: Allergies Allergy/AdvReac Type Severity Reaction Status Date / Time iodine Allergy Intermediate Hives Verified 08/01/17 09:31 bupropion HCl Allergy Hives Verified 08/01/17 09:24 [From Wellbutrin] clarithromycin [From Biaxin] Allergy Difficulty Verified 08/01/17 09:24 Breathing turmeric Allergy Verified 08/01/17 09:24 Home Medications: Ambulatory Orders Albuterol Sulfate Inhaler - [Ventolin HFA Inhaler -] 1 - 2 inh PO Q4H PRN #1 inhaler MDD 6 08/01/17 Anemia: No Asthma: No Cancer: No Cardiac Disorders: (Murmur) CVA: No COPD: No CHF: No Dementia: No Diabetes: Yes (PRE-DIABETIC) GI Disorders: No Disorders: No HTN: No Hypercholesterolemia: No Liver Disease: No Seizures: No Thyroid Disease: No - Surgical History Abdominal Surgery: Yes (SLEEVE GASTRECTOMY) Appendectomy: No Cardiac Surgery: No Cholecystectomy: No Gastric Stapling: Yes Lung Surgery: No Neurologic Surgery: No Orthopedic Surgery: No - Suicide/Smoking/Psychosocial Hx Smoking History: Never smoked Have you smoked in the past 12 months: No If you are a former smoker, when did you quit?: aug 2014 Information on smoking cessation initiated: No 'Breaking Loose' booklet given: 10/10/16 Hx Alcohol Use: No Drug/Substance Use Hx: No Substance Use Type: None Hx Substance Use Treatment: No Review of Systems - Review of Systems Constitutional: Yes: Chills, Fever Respiratory: Yes: Cough, Shortness of Breath, Wheezing Cardiac (ROS): No: Chest Pain, Edema ABD/GI: Yes: Nausea. No: Abdominal Distended : No: Burning, Dysuria Musculoskeletal: No: Back Pain All Other Systems: Reviewed and Negative *Physical Exam - Vital Signs Last Vital Signs Temp Pulse Resp BP Pulse Ox 100.3 F H 122 H 16 128/89 96 08/01/17 09:23 08/01/17 09:23 08/01/17 09:23 08/01/17 09:23 08/01/17 09:23 - Physical Exam General Appearance: Yes: Nourished, Appropriately Dressed HEENT: positive: Normal ENT Inspection. negative: Tonsillar Exudate, Tonsillar Erythema Neck: positive: Trachea midline Respiratory/Chest: positive: Lungs Clear, Normal Breath Sounds. negative: Respiratory Distress Cardiovascular: positive: Regular Rhythm, Regular Rate, S1, S2 Gastrointestinal/Abdominal: positive: Normal Bowel Sounds, Flat, Soft Integumentary: positive: Normal Color, Dry, Warm Neurologic: positive: Fully Oriented, Alert, Normal Mood/Affect ED Treatment Course - LABORATORY CBC & Chemistry Diagram: 08/01/17 10:05 08/01/17 10:05 - ADDITIONAL ORDERS Additional order review: 08/01/17 10:05 RBC 5.10 MCV 86.5 MCHC 33.6 RDW 13.4 MPV 8.8 Neutrophils % 77.7 D Lymphocytes % 12.8 D Monocytes % 7.6 D Eosinophils % 0.5 Basophils % 1.4 - RADIOLOGY Radiology Studies Ordered: Category Date Time Status CHEST PA & LAT [RAD] Stat Radiology 08/01/17 09:52 Ordered - Medications Given in the ED: ED Medications Discontinued Medications Generic Name Dose Route Start Last Admin Trade Name Delma PRN Reason Stop Dose Admin Acetaminophen 1,000 mg 08/01/17 09:58 08/01/17 10:29 Ofirmev Injection - IVPB 08/01/17 09:59 1,000 mg ONCE ONE Administration Ondansetron HCl 4 mg 08/01/17 09:57 08/01/17 10:29 Zofran Injection IVPUSH 08/01/17 09:58 4 mg ONCE ONE Administration Sodium Chloride 1,000 ml 08/01/17 09:57 08/01/17 10:13 Normal Saline - IV 08/01/17 09:58 1,000 ml ONCE ONE Administration Medical Decision Making - Medical Decision Making 08/01/17 10:46 37-year-old f differential viral syndro. We'll treat, IV hydrat Flu swab we'll reasse 08/01/17 11:30 pt feeling improved. dc home. given rx for inhaler. flu swab pending. tyleno prn cxr neg *DC/Admit/Observation/Transfer Diagnosis at time of Disposition: Bronchitis, Viral URI - Discharge Dispostion Disposition: HOME Condition at time of disposition: Fair Admit: No - Prescriptions Prescriptions: Albuterol Sulfate Inhaler - [Ventolin HFA Inhaler -] 1 - 2 inh PO Q4H PRN #1 inhaler MDD 6 PRN Reason: Cough - Referrals - Patient Instructions Printed Discharge Instructions: DI for Acute Bronchitis Additional Instructions: Take Tylenol 500 mg every 6 hours as needed for fever, bodyaches, or pain. Use your albuterol inhaler 2 puffs every 4 hours as needed for cough, or wheezing. Follow-up with your primary care doctor within 1 week. Return for persistent vomiting, worsening shortness of breath. When he concerns. Drink plenty of liquids and get plenty of rest use albuterol 2 puffs every 4 hrs as needed for wheezing, cough - Post Discharge Activity
[2017-08-01 11:35] VITALS: BP 105/67; PULSE 112; TEMP 98.6
== END 2017-08-01 12:08 | disposition home or self-care (01) ==
LOC: FER 09:15
PROC: 3E0F7GC Introduction of Other Therapeutic Substance into Respiratory Tract, Via Natural or Artificial Opening (ICD-10-PCS; principal; 2017-08-01)
PROC: 3E033GC Introduction of Other Therapeutic Substance into Peripheral Vein, Percutaneous Approach (ICD-10-PCS; 2017-08-01)
PROC: 3E033NZ Introduction of Analgesics, Hypnotics, Sedatives into Peripheral Vein, Percutaneous Approach (ICD-10-PCS; 2017-08-01)
PROC: 3E0337Z Introduction of Electrolytic and Water Balance Substance into Peripheral Vein, Percutaneous Approach (ICD-10-PCS; 2017-08-01)
DX: J40 Bronchitis, not specified as acute or chronic (principal); J06.9 Acute upper respiratory infection, unspecified; B97.89 Other viral agents as the cause of diseases classified elsewhere
CPT/HCPCS: 36415; 71020-TC; 80053; 85025; 87804; 94640; 96361; 96374; 99283-25

== ENCOUNTER 2019-08-29 17:42 | Emergency (ER) | payer OTHER ==
[2019-08-29 18:04] VITALS: BP 112/78; PULSE 82; TEMP 98.3; BMI 32.3
--- NOTE | 2019-08-29 19:00 | PDOC ---
History of Present Illness - General Chief Complaint: Pain Stated Complaint: SHARP PAIN, SOB X 1 DAY History Source: Patient Exam Limitations: No Limitations - History of Present Illness Initial Comments: 08/29/19 18:[address] does not do any looks fine was yesterday 39-year-old female here today complaining of left posterior scapular pain. Rating down her arm states that it started the last night. She noticed it in her sleep seems to be coming and going but cannot really relate any specific activities. Has recently started working out did have a strenuous workout last 3 days ago. Denies any shortness of breath no history of PE or DVT. Patient states she was on Clomid several months ago but has not been on it for 4 months denies any recent new leg swelling or calf pain no history of PE or DVT does have a family history of PA in her grandmother in her 80s otherwise no premature coronary disease. Patient is a smoker is planning to quit Past History - Past Medical History Allergies/Adverse Reactions: Allergies Allergy/AdvReac Type Severity Reaction Status Date / Time iodine Allergy Intermediate Hives Verified 08/01/17 09:31 bupropion HCl Allergy Hives Verified 08/01/17 09:24 [From Wellbutrin] clarithromycin [From Biaxin] Allergy Difficulty Verified 08/01/17 09:24 Breathing turmeric Allergy Verified 08/01/17 09:24 Home Medications: Ambulatory Orders Diazepam [Valium] 2 mg PO TID PRN #153 tablet MDD 3 08/29/19 Anemia: No Asthma: No Cancer: No Cardiac Disorders: (Murmur) CVA: No COPD: No CHF: No Dementia: No Diabetes: Yes (PRE-DIABETIC) GI Disorders: No Disorders: No HTN: No Hypercholesterolemia: No Liver Disease: No Seizures: No Thyroid Disease: No - Surgical History Abdominal Surgery: Yes (SLEEVE GASTRECTOMY) Appendectomy: No Cardiac Surgery: No Cholecystectomy: No Gastric Stapling: Yes Lung Surgery: No Neurologic Surgery: No Orthopedic Surgery: No - Psycho Social/Smoking Cessation Hx Smoking History: Never smoked Have you smoked in the past 12 months: No If you are a former smoker, when did you quit?: aug 2014 'Breaking Loose' booklet given: 10/10/16 Hx Alcohol Use: No Drug/Substance Use Hx: No Substance Use Type: None Hx Substance Use Treatment: No Review of Systems - Review of Systems Constitutional: No: Chills, Diaphoresis, Fever HEENTM: No: Eye Pain, Double Vision Respiratory: No: Shortness of Breath Musculoskeletal: Yes: Back Pain, Muscle Pain Neurological: No: Headache, Numbness, Paresthesia All Other Systems: Reviewed and Negative *Physical Exam - Vital Signs Last Vital Signs Temp Pulse Resp BP Pulse Ox 98.3 F 82 16 112/78 98 08/29/19 17:43 08/29/19 17:43 08/29/19 17:43 08/29/19 17:43 08/29/19 17:43 - Physical Exam 08/29/19 18:56 Awake alert no acute distress lungs are clear bilaterally there is left posterior scapular muscle tenderness. And some trapezial spasm. No weakness noted patient has clear lungs bilaterally heart is regular 30 murmurs rubs or gallops abdomen is soft nontender extremities are warm well perfused there is no noted peripheral edema or calf tenderness. Heart Score/ECG Review #1 General ECG Interpretation: Sinus Rhythm, Normal Rate (72), Normal Intervals, No acute ischemic changes ED Treatment Course - RADIOLOGY Radiology Studies Ordered: Category Date Time Status CHEST PA & LAT [RAD] Stat Radiology 08/29/19 18:04 Taken Medical Decision Making - Medical Decision Making 08/29/19 18:57 39-year-old female history of left scapular back pain since yesterday and sharp intermittent is reproducible on my exam. Will obtain an EKG and chest x-ray. Patient was advised to quit smoking UCG was obtained and is negative chest x- ray was clear EKG is unremarkable will discharge home with Tylenol as needed every 5 hours we will also prescribe a muscle relaxer of Valium 2.5 mg which she can take every 8 hours as needed Discharge - Discharge Information Problems reviewed: Yes Clinical Impression/Diagnosis: Muscle spasm Condition: Improved Disposition: HOME - Admission No - Additional Discharge Information Prescriptions: Diazepam [Valium] 2 mg PO TID PRN #153 tablet MDD 3 PRN Reason: Pain - Follow up/Referral Referrals: Ashley Moses MD [Primary Care Provider] - - Patient Discharge Instructions Patient Printed Discharge Instructions: Muscle Strain Additional Instructions: Doing 1 a ride y but I may have to stop my down the way but that is fine Mandeep effect and then she can go home if that is negative her EKG is normal. Her chest x-ray is negative. You likely have a muscle spasm secondary to your workouts. Return for any severe shortness of breath worsening symptoms or any concerns sudden weakness numbness or any problems. You can take Tylenol 500 mg every 6 hours as needed for your pain. Can also take a muscle relaxer Valium 2 mg you can take 1 tablet every 8 hours as needed for muscle spasm. Do not take this medication before driving and do not mix with alcohol as it can make you drowsy. You should follow-up with your primary care doctor please call to schedule follow-up - Post Discharge Activity
--- NOTE | 2019-08-30 13:36 | EKG ---
Test Reason : Blood Pressure : / mmHG Vent. Rate : 072 BPM Atrial Rate : 072 BPM P-R Int : 132 ms QRS Dur : 090 ms QT Int : 360 ms P-R-T Axes : 017 028 016 degrees QTc Int : 394 ms NORMAL SINUS RHYTHM NONSPECIFIC ST AND T WAVE ABNORMALITY ABNORMAL ECG Confirmed by RAFA RODRÍGUEZ MD ([id number]) on 08/30/2019 1:35:44 PM Referred By: DR LIRIANO Confirmed By:RAFA RODRÍGUEZ MD
== END 2019-08-29 19:36 | disposition home or self-care (01) ==
LOC: FER 17:42
DX: M62.838 Other muscle spasm (principal); R73.03 Prediabetes; R01.1 Cardiac murmur, unspecified; Z88.1 Allergy status to other antibiotic agents; Z88.8 Allergy status to other drugs, medicaments and biological substances
CPT/HCPCS: 71046-TC-FY; 81025; 93005; 99281-25

== ENCOUNTER 2020-05-12 00:25 | Emergency (ER) | payer OTHER ==
[2020-05-12 00:35] VITALS: BP 123/88; PULSE 73; TEMP 99.3; BMI 37.1
--- NOTE | 2020-05-12 00:42 | PDOC ---
History of Present Illness - General Chief Complaint: Nausea/Vomiting Stated Complaint: STOMACH CRAMPING, VOMITING,NAUSEA,PAIN Time Seen by Provider: 05/12/20 00:30 - History of Present Illness Initial Comments: This 40-year-old woman with a history of gastric sleeve resection presents with 1 day history of nausea/vomiting and right upper quadrant abdominal pain. Symptoms began approximately 12 PM with several episodes of emesis (partially digested food; no blood or coffee-ground) and progressive right upper quadrant pain radiating to the right flank. No history of this type of pain/vomiting; no known previous history of biliary tract or liver disease. Patient also has had generalized abdominal cramping and sensation of tenesmus; no history of BM or gas passage today. Had small amount of mucus per rectum earlier. No fever noted. Patient notes no complications after gastric sleeve resection Past History - Medical History Allergies/Adverse Reactions: Allergies Allergy/AdvReac Type Severity Reaction Status Date / Time iodine Allergy Intermediate Hives Verified 05/12/20 00:28 bupropion HCl Allergy Hives Verified 05/12/20 00:28 [From Wellbutrin] clarithromycin [From Biaxin] Allergy Difficulty Verified 05/12/20 00:28 Breathing turmeric Allergy Verified 05/12/20 00:28 Home Medications: Ambulatory Orders NK [No Known Home Medication] 05/12/20 Anemia: No Asthma: No Cancer: No Cardiac Disorders: (Murmur) CVA: No COPD: No CHF: No Dementia: No Diabetes: Yes (PRE-DIABETIC) GI Disorders: No Disorders: No HTN: No Hypercholesterolemia: No Liver Disease: No Seizures: No Thyroid Disease: No - Surgical History Abdominal Surgery: Yes (SLEEVE GASTRECTOMY) Appendectomy: No Cardiac Surgery: No Cholecystectomy: No Gastric Stapling: Yes Lung Surgery: No Neurologic Surgery: No Orthopedic Surgery: No - Reproductive History Is Patient Now?: No - Psycho-Social/Smoking History Smoking History: Former smoker Have you smoked in the past 12 months: Yes If you are a former smoker, when did you quit?: aug 2014 Information on smoking cessation initiated: Yes 'Breaking Loose' booklet given: 10/10/16 - Substance Abuse Hx (Audit-C & DAST Scrn) How often the patient has a drink containing alcohol: Never Score: In Men: 4 or > Positive; In Women: 3 or > Positive: 0 Screen Result (Pos requires Nsg. Audit-10AR): Negative In the last yr the pt used illegal drug/Rx for NonMed reason: No Score: Yes response is considered Positive: 0 Screen Result (Positive result requires Nsg. DAST-10): Negative Review of Systems - Review of Systems Able to Perform ROS?: Yes Comments:: 12 point review of systems is negative except for what is noted in the history of present illness *Physical Exam - Vital Signs Last Vital Signs Temp Pulse Resp BP Pulse Ox 99.3 F 73 18 123/88 99 05/12/20 00:29 05/12/20 00:29 05/12/20 00:29 05/12/20 00:05/12/20 00:29 - Physical Exam GENERAL: Adult female, alert and oriented x3,in mild distress secondary to abdominal pain HEAD: Normal with no signs of trauma. EYES: PERRLA, EOMI, sclera anicteric, conjunctiva clear. ENT: Ears normal, nares patent, oropharynx clear without exudates. Moist mucous membranes. NECK: Normal range of motion, supple without lymphadenopathy, JVD, or masses. LUNGS: Breath sounds equal, clear to auscultation bilaterally. No wheezes, and no crackles. HEART:Regular rate and rhythm, normal S1 and S2 without murmur, rub or gallop. ABDOMEN:.normal bowel sounds; right upper quadrant tenderness with Brewster sign; mild right CVA tenderness No rebound or involuntary guarding; no masses EXTREMITIES: Normal range of motion, no edema. No clubbing or cyanosis. No erythema, or tenderness. NEUROLOGICAL: Cranial nerves II through XII grossly intact. Normal speech. No focal neurological deficits. MUSCULOSKELETAL: Back non-tender to palpation, no CVA tenderness ED Treatment Course - LABORATORY CBC & Chemistry Diagram: 05/12/20 00:45 05/12/20 00:45 Medical Decision Making - Medical Decision Making As noted above, this 40-year-old woman with a history of gastric sleeve resection bariatric surgery presents with 1 day history of nausea/vomiting and abdominal pain (primarily on the right side) there has been no fever or chills. The patient has not had diarrhea but has passed a small amount of mucus per rectum. Exam as noted with significant right upper quadrant tenderness and M urphy's sign. Differential diagnosis includes but not limited to biliary tract disease (acute cholecystitis/biliary colic), acute pancreatitis, acute appendicitis, small bowel obstruction CBC, chemistry profile, UA and PGU sent Patient given 1 g acetaminophen IV and 4 mg Zofran IV Laboratory evaluation essentially normal; PGU was negative. Patient feels significantly better after acetaminophen and Zofran IV Both gallbladder ultrasound and noncontrast abdominal/pelvic CT performed (patient has history of iodine allergy). Interpretation of studies by Imaging on Callultrasound: Questionable g allbladder sludge but no evidence of acute cholecystitis. Abdominal/pelvic CT: Essentially normal study without evidence of acute appendicitis, small bowel obstruction, or Other acute pathologic process Results discussed with the patient. Patient reveals that she has been on a ketogenic diet which involves increasing intake of high-fat foods. This would suggest that the patient did has some biliary dysfunction occurring. Although no gallstones were seen on ultrasound study, it is possible that the patient has passed a stone and has some amount of gallstone ileus. In any case, she should maintain a light diet and limit the amount of fat in her foods. She should contact her PMD, Dr. Moses, and follow-up with her as arranged. She should return to the ER if she has recurrent severe pain, persistent vomiting or fever Discharge - Discharge Information Problems reviewed: Yes Clinical Impression/Diagnosis: Biliary colic Condition: Stable Disposition: HOME - Follow up/Referral Referrals: Ashley Moses MD [Primary Care Provider] - Call tomorrow - Patient Discharge Instructions Patient Printed Discharge Instructions: DI for Biliary Colic Additional Instructions: Avoid excessive fat in your diet Drink plenty of fluids Call Dr. Moses tomorrow and follow up as arranged Return to ER if you have persistent severe pain, vomiting, fever - Post Discharge Activity
[2020-05-12] MEDS ORDERED: ACETAMINOPHEN 1000 MG/100 ML VIAL (NON FORMULARY) IVPB ONE (01:21)
[2020-05-12] MEDS ORDERED: ONDANSETRON 4 MG/2 ML VIAL IVPUSH ONE (01:21)
[2020-05-12] MEDS ORDERED: ONDANSETRON 4 MG/2 ML VIAL ONE (01:24)
[2020-05-12] MEDS ORDERED: ACETAMINOPHEN INJECTION 100 ML IVPB ONE (01:24)
[2020-05-12 01:40] LABS: URINE APPEARANCE CLEAR; URINE BILIRUBIN NEGATIVE (NEGATIVE); URINE COLOR YELLOW; URINE GLUCOSE (UA) NEGATIVE (NEGATIVE); URINE KETONE NEGATIVE (NEGATIVE); URINE LEUK ESTERASE NEGATIVE (NEGATIVE); URINE NITRITE NEGATIVE (NEGATIVE); URINE PROTEIN NEGATIVE (NEGATIVE); URINE UROBILINOGEN 0.2 mg/dL (0.2-1.0)
[2020-05-12 01:45] LABS: BASO % 0.4 % (0-2.0); EOS % 0.5 % (0-4.5); HEMATOCRIT 39.3 % (32.4-45.2); HEMOGLOBIN 13.2 GM/dL (10.7-15.3); LYMPH % 34.6 % (8-40); MCH 29.5 pg (25.7-33.7); MCHC 33.5 g/dl (32.0-36.0); MEAN CELL VOLUME 88.1 fl (80-96); MEAN PLT VOLUME 8.4 fl (7.5-11.1); MONO % 4.3 % (3.8-10.2); NEUT % 60.2 % (42.8-82.8); PLATELET COUNT 283 K/MM3 (134-434); RBC 4.46 M/mm3 (3.60-5.2); RDW 13.4 % (11.6-15.6); WHITE BLOOD COUNT 9.3 K/mm3 (4.0-10.0)
[2020-05-12 02:02] LABS: ALBUMIN 3.9 g/dl (3.4-5.0); BILIRUBIN,TOTAL 0.3 mg/dL (0.2-1); BLOOD UREA NITROGEN 7.8 mg/dL (7-18); CALCIUM 9.3 mg/dL (8.5-10.1); TOT PROT 7.5 g/dl (6.4-8.2)
== END 2020-05-12 05:01 | disposition home or self-care (01) ==
LOC: FER 00:25
PROC: 3E0333Z Introduction of Anti-inflammatory into Peripheral Vein, Percutaneous Approach (ICD-10-PCS; principal; 2020-05-12)
PROC: 3E033GC Introduction of Other Therapeutic Substance into Peripheral Vein, Percutaneous Approach (ICD-10-PCS; 2020-05-12)
DX: K80.42 Calculus of bile duct with acute cholecystitis without obstruction (principal)
CPT/HCPCS: 36415; 74176-TC; 76705-TC; 80053; 81003; 84703; 85025; 99285-25; J0131

== ENCOUNTER 2020-09-16 10:03 | Emergency (ER) | payer OTHER ==
[2020-09-16 10:21] VITALS: BP 110/71; PULSE 79; TEMP 99.7; BMI 38.7
[2020-09-16 10:58] LABS: HCG,QUALITATIVE URINE Negative
[2020-09-16 11:11] LABS: EPITHELIAL CELLS MODERATE /hpf
== END 2020-09-16 14:31 | disposition home or self-care (01) ==
LOC: FER 10:03
PROC: 3E0233Z Introduction of Anti-inflammatory into Muscle, Percutaneous Approach (ICD-10-PCS; principal; 2020-09-16)
DX: M54.5 Low back pain (principal)
CPT/HCPCS: 72100-TC-FY; 76830-TC; 76856-TC; 81003; 81015; 84703; 87086; 99285-25

== ENCOUNTER 2021-04-03 09:09 | Emergency (ER) | payer OTHER ==
[2021-04-03 09:20] VITALS: BMI 40.3
[2021-04-03] MEDS ORDERED: ACETAMINOPHEN 1000 MG/100 ML VIAL (NON FORMULARY) IVPB ONE (09:41)
[2021-04-03] MEDS ORDERED: ONDANSETRON 4 MG/2 ML VIAL IVPUSH ONE (09:41)
[2021-04-03] MEDS ORDERED: SODIUM CHLORIDE 0.9% 500 ML INFUS.BAG IV ONE (09:41)
[2021-04-03] MEDS ORDERED: ACETAMINOPHEN INJECTION 100 ML IVPB ONE (09:43)
[2021-04-03] MEDS ORDERED: ONDANSETRON 4 MG/2 ML VIAL ONE (09:43)
[2021-04-03 10:29] LABS: BASO % 0.5 % (0-2.0); HEMATOCRIT 39.4 % (32.4-45.2); HEMOGLOBIN 12.9 GM/dl (10.7-15.3); LYMPH % 15.8 % (8-40); MCH 29.3 pg (25.7-33.7); MCHC 32.8 g/dl (32.0-36.0); MEAN CELL VOLUME 89.3 fl (80-96); MEAN PLT VOLUME 8.2 fl (7.5-11.1); MONO % 5.3 % (3.8-10.2); NEUT % 78.4 % (42.8-82.8); PLATELET COUNT 256 10^3/uL (134-434); RBC 4.41 M/mm3 (3.60-5.2); RDW 13.5 % (11.6-15.6); WHITE BLOOD COUNT 7.9 K/mm3 (4.0-10.8)
[2021-04-03 10:34] LABS: ALBUMIN 3.6 g/dl (3.4-5.0); BILIRUBIN,TOTAL 0.7 mg/dl (0.2-1); CALCIUM 8.5 mg/dl (8.5-10); CREATININE 0.8 mg/dl (0.55-1.3)
[2021-04-03 11:22] LABS: HCG,QUALITATIVE URINE Negative
[2021-04-03] MEDS ORDERED: IBUPROFEN 600 MG TABLET (FP) PO ONE ×2 (11:33→11:37)
[2021-04-03 12:05] VITALS: BP 118/68; PULSE 80; TEMP 99.8
== END 2021-04-03 13:35 | disposition home or self-care (01) ==
LOC: FER 09:09
PROC: 3E033NZ Introduction of Analgesics, Hypnotics, Sedatives into Peripheral Vein, Percutaneous Approach (ICD-10-PCS; principal; 2021-04-03)
PROC: 3E033GC Introduction of Other Therapeutic Substance into Peripheral Vein, Percutaneous Approach (ICD-10-PCS; 2021-04-03)
DX: R50.9 Fever, unspecified (principal)
CPT/HCPCS: 36415; 71046-TC-FY; 80053; 81003; 84703; 85025; 87086; 87804; 96374; 96375; 99284-25; C9803; J0131; U0003; U0005

== ENCOUNTER 2021-06-03 16:47 | Emergency (ER) | payer OTHER ==
[2021-06-03 17:03] VITALS: TEMP 98.1; BMI 41.9
[2021-06-03] MEDS ORDERED: ACETAMINOPHEN 1000 MG/100 ML VIAL (NON FORMULARY) IVPB ONE (17:15)
[2021-06-03] MEDS ORDERED: SODIUM CHLORIDE 0.9% 1000 ML INFUS.BAG IV ONE (17:15)
[2021-06-03 17:31] VITALS: BP 134/90; PULSE 91
[2021-06-03 17:37] LABS: BASO % 1.5 % (0-2.0); EOS % 0.3 % (0-4.5); HEMATOCRIT 37.5 % (32.4-45.2); HEMOGLOBIN 12.7 GM/dl (10.7-15.3); LYMPH % 40.8 % (8-40); MCH 29.4 pg (25.7-33.7); MCHC 33.9 g/dl (32.0-36.0); MEAN CELL VOLUME 86.9 fl (80-96); MEAN PLT VOLUME 7.8 fl (7.5-11.1); MONO % 4.7 % (3.8-10.2); NEUT % 52.7 % (42.8-82.8); PLATELET COUNT 315 10^3/uL (134-434); RBC 4.32 M/mm3 (3.60-5.2); RDW 12.7 % (11.6-15.6)
[2021-06-03 17:58] LABS: BILIRUBIN,TOTAL 0.4 mg/dl (0.2-1); CALCIUM 9.7 mg/dl (8.5-10); TOT PROT 7.6 g/dl (6.4-8.2)
== END 2021-06-03 18:12 | disposition home or self-care (01) ==
LOC: FER 16:47
PROC: 3E0333Z Introduction of Anti-inflammatory into Peripheral Vein, Percutaneous Approach (ICD-10-PCS; principal; 2021-06-03)
DX: R00.2 Palpitations (principal)
CPT/HCPCS: 36415; 80053; 85025; 93005; 99284-25; J0131

== ENCOUNTER 2022-03-14 18:30 | Emergency (ER) | payer OTHER ==
[2022-03-14 18:50] VITALS: BP 130/86; PULSE 104; TEMP 97.9; BMI 41.6
[2022-03-14 20:24] LABS: ALBUMIN 3.5 g/dl (3.4-5.0); BILIRUBIN,TOTAL 0.5 mg/dl (0.2-1); CALCIUM 9.5 mg/dl (8.5-10); CREATININE 0.8 mg/dl (0.55-1.3); MAGNESIUM 2.1 mg/dL (1.8-2.4); TOT PROT 7.5 g/dl (6.4-8.2)
[2022-03-14 20:55] LABS: HEMATOCRIT 38.4 % (32.4-45.2); HEMOGLOBIN 13.2 G/dL (10.7-15.3); MCH 29.4 pg (25.7-33.7); MCHC 34.4 g/dl (32.0-36.0); MEAN CELL VOLUME 85.3 fl (80-96); MEAN PLT VOLUME 8.2 fl (7.5-11.1); PLATELET COUNT 303.4 10^3/uL (134-434)
[2022-03-14 21:03] LABS: PLATELET ESTIMATE ADEQUATE
== END 2022-03-14 20:25 | disposition home or self-care (01) ==
LOC: FER 18:30
DX: R42 Dizziness and giddiness (principal); Z32.01 Encounter for pregnancy test, result positive
CPT/HCPCS: 36415; 80053; 81003; 83735; 85025; 99284-25

== ENCOUNTER 2022-08-07 21:43 | Emergency (ER) | payer OTHER ==
[2022-08-07 22:34] VITALS: BP 138/78; PULSE 86; RESP 18; TEMP 98.9; BMI 41.9
== END 2022-08-07 22:41 | disposition home or self-care (01) ==
LOC: FER 21:43
DX: Z77.098 Contact with and (suspected) exposure to other hazardous, chiefly nonmedicinal, chemicals (principal)
CPT/HCPCS: 99281-25

== ENCOUNTER 2023-09-07 00:01 | Emergency (ER) | payer OTHER ==
[2023-09-07 00:18] VITALS: BP 122/73; PULSE 86; RESP 17; TEMP 98.1; BMI 37.1
== END 2023-09-07 00:43 | disposition home or self-care (01) ==
LOC: FER 00:01
DX: R00.2 Palpitations (principal)
CPT/HCPCS: 99282-25

== ENCOUNTER 2024-04-16 08:22 | Emergency (ER) | payer OTHER ==
[2024-04-16] MEDS ORDERED: LIDOCAINE 4% PATCH TP ONE (09:01)
[2024-04-16] MEDS ORDERED: METHOCARBAMOL 500 MG TABLET ONE (09:04)
[2024-04-16] MEDS ORDERED: ACETAMINOPHEN 500 MG TABLET (FP) ONE (09:05)
[2024-04-16] MEDS: LIDOCAINE 5% TOPICAL PATCH TP ONE (09:09)
[2024-04-16] MEDS: ACETAMINOPHEN 500 MG TABLET (FP) PO ONE (09:10)
[2024-04-16] MEDS: METHOCARBAMOL 500 MG TABLET PO ONE (09:11)
[2024-04-16 09:18] VITALS: BP 110/74; PULSE 70; RESP 18; TEMP 98.6; BMI 38.7
[2024-04-16] MEDS ORDERED: KETOROLAC TROMETHAMINE 30 MG/1 ML VIAL ONE (09:51)
[2024-04-16] MEDS: KETOROLAC TROMETHAMINE 30 MG/1 ML VIAL IM ONE (09:55)
[2024-04-16] MEDS ORDERED: LIDOCAINE PATCH REMOVAL MC ONE (22:00)
== END 2024-04-16 10:26 | disposition home or self-care (01) ==
LOC: JER 08:22
PROC: 3E0333Z Introduction of Anti-inflammatory into Peripheral Vein, Percutaneous Approach (ICD-10-PCS; principal; 2024-04-16)
DX: M79.601 Pain in right arm (principal); R20.0 Anesthesia of skin
CPT/HCPCS: 84703; 93005; 93010; 99284-25